=== PATIENT | female | born 1985 | race Caucasian/White ===

== ENCOUNTER 2022-12-17 10:51 | Day surgery (SDC) | payer OTHER, SELFPAY ==
[2022-12-17 11:09] VITALS: BP 139/79; PULSE 77; RESP 17; TEMP 36.2; O2SAT 98; BMI 34.4
[2022-12-17] MEDS: LACTATED RINGERS 1,000 ML 200 ML IV (11:25)
--- NOTE | 2022-12-17 12:20 | PM.HP.1 ---
History of Present Illness History of Present Illness Date Patient Seen: 12/17/22 Time Patient Seen: 12:20 Chief complaint: SDC Narrative: 37-year-old with rectal here for diagnostic colonoscopy. Please refer to the H and P from October 2022 for further detail. No interval change in health. PFSH Family History Father Diabetes mellitus Mother Diabetes mellitus Sister Diabetes mellitus Family/Other Diabetes mellitus Family/Other Breast cancer Social History marital status: household members: spouse and children lives independently: Yes occupational status: employed Smoking Status: Current every day smoker alcohol intake: current substance use type: does not use Meds Home Medications and Allergies Home Medications Medication Instructions Recorded Confirmed Type docusate sodium 50 mg tablet mg PO 07/23/22 11/14/22 History methylcellulose (with sugar) oral ea PO 07/23/22 11/14/22 History powder packet sodium,potassium,mag sulfates 17.5 See Rx Instructions PO .COMPLEX 11/15/22 Rx gram-3.13 gram-1.6 gram oral soln #354 mL (Suprep Bowel Prep Kit) norethindrone 1.5 mg-ethinyl 1 tab PO DAILY 12/17/22 12/17/22 History estradiol 30 mcg(21)/iron 75 mg(7) tablet (Junel FE .01/14 (28)) Allergies Allergy/AdvReac Type Severity Reaction Status Date / Time No Known Drug Allergies Allergy Verified 12/17/22 11:07 Exam Vital Signs (past 8 hours): - 12/17/22 11:09 Temperature 97.1 F L Pulse Rate 77 Respiratory Rate 17 Blood Pressure 139/79 Pulse Oximetry 98 Oxygen Delivery Method Room Air Oxygen Delivery Method Room Air Narrative Exam Narrative: General adult woman alert oriented no acute distress Assessment & Plan Assessment and plan (1) Rectal pain, chronic: Status: Acute Assessment & Plan narrative: 37-year-old woman with chronic rectal pain here for diagnostic colonoscopy. Technical details were discussed. Risks, benefits, alternatives explained. Risks including but not limited to myocardial infarction, aspiration, bleeding, pain, missed lesion, incomplete examination, need for further radiographic studies, colonic perforation, and need for major abdominal surgery were discussed. All questions were answered to their satisfaction, and they are in agreement with this plan.
--- NOTE | 2022-12-17 12:46 | PM.OP.COLON ---
Operative Date/Time/Diagnoses Date of procedure: 12/17/22 Time of procedure: 12:46 Pre-op diagnosis: Rectal pain Post-op diagnosis: same Procedure & Clinicians Study performed: Colonoscopy Same procedure as scheduled: Yes Indications: Chronic rectal pain Surgeon: Wilson Burgos Procedure Notes Procedure in detail: The history and physical was performed/updated and the patient is ASA class is 2. The procedure was discussed in detail with the patient. Potential risks complications including infection, bleeding, missed diagnosis, perforation, need for surgery, and were explained. Their questions were answered and informed consent was obtained. Patient was brought to the procedure room and placed standard monitoring equipment. The patient's vital signs were monitored continuously throughout the entire procedure. Prior to starting time-out was performed. The patient was placed in the left lateral recumbent position. Procedural sedation was administered by anesthesia. Examination began with a thorough inspection of the perianal area there was no evidence of fissures, fistulae, external hemorrhoids or cutaneous malignancy. The colonoscopy scope was then placed into the anal canal and was advanced to the cecum, which was identified by the ileocecal valve, the appendiceal orifice and the confluence of the taenia. The scope was then slowly withdrawn examining colon thoroughly in all directions, irrigating it of any residual stool. The colon was normal in its appearance. It is without masses polyps or inflammation. No significant hemorrhoid disease was identified on retroflexion the scope within the rectum. The patient tolerated the procedure well. They will be discharged once criteria are met. The prep was of good/excellent quality. The withdrawl time was 6 minutes. Specimen(s): none sent Impression: Normal colonoscopy Post-procedure Recommendations: High fiber diet Disposition: same day surgery
[2022-12-17 12:47] VITALS: BP 110/75; PULSE 71; RESP 16; TEMP 36.4; O2SAT 98
[2022-12-17 12:50] VITALS: BP 114/73; PULSE 66; RESP 16; O2SAT 98
[2022-12-17 13:00] VITALS: BP 127/87; PULSE 61; RESP 16; O2SAT 98
== END 2022-12-17 13:12 | disposition home or self-care (01) ==
PROVIDERS: PCP Nurse Practitioner Family; Referring Provider Surgery; Visit Provider Surgery
PROC: 0DJD8ZZ Inspection of Lower Intestinal Tract, Via Natural or Artificial Opening Endoscopic (ICD-10-PCS; CPT 45378; principal; 2022-12-17 12:00)
DX: K62.89 Other specified diseases of anus and rectum (principal); G89.29 Other chronic pain; F17.200 Nicotine dependence, unspecified, uncomplicated
CPT/HCPCS: 45378; J2250; J2704; J3010

== ENCOUNTER 2023-03-17 09:14 | Day surgery (SDC) | payer OTHER, SELFPAY ==
--- NOTE | 2023-03-17 | PATH_ITS ---
[facility] Accession Number: [id number] No. of containers..02 Tissue . 01 Material submitted: . PART A: duodenum - DUODENUM PART B: gastrointestinal site - ANTRUM . 01 Diagnosis: A. Duodenum, Biopsy: Duodenal mucosa with no diagnostic abnormality. Negative for active inflammation, features of sprue, dysplasia, or malignancy. . B. Gastric Antrum, Biopsy: Helicobacter pylori gastritis. A moderate number of forms morphologically consistent with Helicobacter pylori seen on H/E stain. Negative for intestinal metaplasia. Negative for dysplasia or malignancy. MRV 03/24/2023 1349 Local . 01 Electronically signed: . Paolo Clayton MD, PhD, Pathologist NPI- [id number] . 01 Gross description: . Part A: DUODENUM: Received in formalin are 3 fragment(s) of unger, soft tissue measuring 0.1 x 0.1 x 0.1 cm to 0.3 x 0.2 x 0.2 cm submitted entirely in 1 cassette(s) Part B: ANTRUM: Received in formalin is 1 fragment(s) of unger, soft tissue measuring 0.5 x 0.3 x 0.2 cm submitted entirely in 1 cassette(s) /MATHEW 03/20/2023 0055 Local . 01 Pathologist provided ICD-10: K29.70, B96.81 . 01 CPT . 671836, 823406 Specimen Comment: A courtesy copy of this report has been sent to [phone] Performed at: 01 [facility] [address] [place] [address] [address], [place], [place] [id number] MD Carlos Enrique Ambrose MD Phone: [phone]
[2023-03-17 09:33] VITALS: BP 129/82; PULSE 72; RESP 17; TEMP 36.3; O2SAT 98; BMI 32.8
[2023-03-17] MEDS: LACTATED RINGERS 1,000 ML 42 ML IV (09:46)
--- NOTE | 2023-03-17 10:25 | PM.HP.1 ---
History of Present Illness History of Present Illness Date Patient Seen: 03/17/23 Time Patient Seen: 10:25 Chief complaint: EGD Narrative: I reviewed the recent note by pb James. No significant changes. She is burping GERD iron-deficiency anemia crampy abdominal pain. Recent colonoscopy did not explain symptoms. [facility] Family History Father Diabetes mellitus Mother Diabetes mellitus Sister Diabetes mellitus Family/Other Diabetes mellitus Family/Other Breast cancer Social History marital status: household members: spouse and children lives independently: Yes occupational status: employed Smoking Status: Current every day smoker alcohol intake: current substance use type: does not use Meds Home Medications and Allergies Home Medications Medication Instructions Recorded Confirmed Type norethindrone 1.5 mg-ethinyl 1 tab PO DAILY 12/17/22 03/17/23 History estradiol 30 mcg(21)/iron 75 mg(7) tablet (Junel FE 1.5/30 (28)) Allergies Allergy/AdvReac Type Severity Reaction Status Date / Time No Known Drug Allergies Allergy Verified 03/17/23 09:32 Review of Systems Review of Systems ROS: Yes All systems reviewed with the patient and are negative except as otherwise documented Exam Vital Signs (past 8 hours): - 03/17/23 09:33 Temperature 97.3 F L Pulse Rate 72 Respiratory Rate 17 Blood Pressure 129/82 Pulse Oximetry 98 Oxygen Delivery Method Room Air Oxygen Delivery Method Room Air Const General: cooperative HENMT Head: normal to inspection Eyes General: appearance normal, both eyes and all related structures Neck Neck: normal visual inspection Chest Chest: normal inspection of the chest Resp Effort & Inspection: normal respiratory effort Cardio Rate: regular rate GI Inspection: normal to inspection Skin General: no rashes or lesions noted Neuro General: patient alert and patient awake Extrem General: normal to inspection and no pedal edema Psych Appearance: grossly normal Assessment & Plan Assessment & Plan narrative: 37-year-old female with abdominal cramps, GERD, burping, and iron-deficiency anemia. EGD is pursued today.
--- NOTE | 2023-03-17 10:26 | PM.PREOP ---
Pre-operative Note Interval Note History & Physical reviewed/Exam performed by Physician: Yes Changes to H&P: No ASA Class (for procedural sedation): II
[2023-03-17 11:19] VITALS: BP 84/31; PULSE 68; RESP 16; TEMP 36.3; O2SAT 95
--- NOTE | 2023-03-17 11:20 | PM.OP.EGD ---
Operative Date/Time/Diagnoses Date of procedure: 03/17/23 Time of procedure: 11:20 Pre-op diagnosis: Burping, GERD, crampy abdominal pain, iron-deficiency anemia Post-op diagnosis: same Procedure & Clinicians Study performed: EGD with biopsies Same procedure as scheduled: Yes Indications: Burping, GERD, crampy abdominal pain, iron-deficiency anemia Surgeon: Aquilino Razo Procedure Notes SCOAP/Timeout: Done Procedure in detail: After the risks and benefits were explained, written and verbal informed consent was obtained. The patient was brought into the procedure room and placed into the left lateral decubitus position. Please see anesthesia notes for sedation details. The scope was introduced into the mouth through the bite block and advanced under direct visualization to the 2nd portion of the duodenum. The scope was slowly withdrawn carefully examining the mucosa for any defects or lesions. Retroflexed views were accomplished in the stomach. The stomach was decompressed, the scope was then removed from the patient who tolerated the procedure well. Sedation minutes: 7 Complications: none Impression: 1. Duodenum: This was visually unremarkable from the bulb through the 2nd portion. Random D2 biopsies were taken for exclusion of celiac. 2. Stomach: No gastric outlet obstruction no ulcers no mass lesions. Retroflexed views of the LES were unremarkable. There were a few subtle erosive features in the antral region. These were included in biopsies for exclusion of H pylori or other pathology. 3. Esophagus: The squamocolumnar junction correlated with the top of the gastric folds. GEJ was at about 38 cm from the incisors. There was a very subtle sliding hiatal hernia noted. There were at least 3-4 small erosions noted at the level of GE junction consistent with acid induced injury. No other significant pathology was appreciated throughout. Endoscopic diagnosis 1. Subtle sliding hiatal hernia (less than a cm) 2. LA grade C erosive esophagitis 3. Mild erosive gastropathy. Post-procedure Plan for aftercare: 1. Await histopathology. 2. Initiate anti-reflux therapy with once daily [id number] famotidine or omeprazole. 3. Follow up GI clinic Disposition: PACU
[2023-03-17 11:23] VITALS: BP 87/41; PULSE 60; RESP 16; O2SAT 95
[2023-03-17 11:35] VITALS: BP 99/40; PULSE 62; RESP 16; O2SAT 98
[2023-03-17 11:52] VITALS: BP 122/72; PULSE 72; RESP 16; TEMP 36.3; O2SAT 98
== END 2023-03-17 11:56 | disposition home or self-care (01) ==
PROVIDERS: PCP Nurse Practitioner Family; Referring Provider Internal Medicine Gastroenterology; Visit Provider Internal Medicine Gastroenterology
PROC: 0DJ08ZZ Inspection of Upper Intestinal Tract, Via Natural or Artificial Opening Endoscopic (ICD-10-PCS; CPT 43235; principal; 2023-03-17 10:00)
DX: K29.60 Other gastritis without bleeding (principal); B96.81 Helicobacter pylori [H. pylori] as the cause of diseases classified elsewhere; K21.00 Gastro-esophageal reflux disease with esophagitis, without bleeding; D50.9 Iron deficiency anemia, unspecified; K44.9 Diaphragmatic hernia without obstruction or gangrene; K31.89 Other diseases of stomach and duodenum
CPT/HCPCS: 43239; J2704